=== PATIENT | male | born 1990 | race Caucasian/White ===

== ENCOUNTER 2020-05-30 16:11 | Outpatient (REF) | payer MEDICAID, SELFPAY ==
--- NOTE | 2020-05-30 16:19 | XR_ITS ---
EXAMINATION: XR MANDIBLE CLINICAL INFORMATION: Jaw pain. Right-sided injury. COMPARISON: None TECHNIQUE: 4 views of the mandible were obtained. FINDINGS: There is no fracture identified. No cortical disruption or discontinuity. Alignment of the temporomandibular joints appears grossly maintained. The visualized paranasal sinuses appear aerated. XR/XR mandible min 4V IMPRESSION: No evidence of fracture or malalignment.
== END 2020-05-30 16:12 | disposition home or self-care (01) ==
LOC: HO.HMGCX 16:11
PROVIDERS: Visit Provider Hospitalist
DX: R68.84 Jaw pain (principal)
CPT/HCPCS: 70110

== ENCOUNTER 2021-04-04 11:38 | Emergency (ER) | payer MEDICAID, SELFPAY ==
--- NOTE | ~2021-04-04 | XR_ITS ---
EXAMINATION: XR KNEE, RIGHT CLINICAL INFORMATION: Pain COMPARISON: 2 views right knee obtained earlier today TECHNIQUE: The other 2 views of the right knee. FINDINGS: There is no visible acute fracture, dislocation or subluxation seen. No bony erosive changes. No loose body seen. XR/XR knee RT 2V IMPRESSION: Unremarkable right knee exam.
--- NOTE | ~2021-04-04 | XR_ITS ---
EXAMINATION: XR KNEE, RIGHT CLINICAL INFORMATION: Right knee pain COMPARISON: None TECHNIQUE: 2 views of of the right knee. FINDINGS: Bone alignment is normal. No fracture or dislocation is seen. Joint spaces are normal. There is a cpken-[id number]-uvvbeosr joint effusion. XR/XR knee RT 2V IMPRESSION: Small to moderate effusion otherwise unremarkable exam.
[2021-04-04 11:45] VITALS: BP 124/62; PULSE 59; RESP 18; TEMP 36.9; O2SAT 99; BMI 27.6
--- NOTE | 2021-04-04 12:41 | ED_ITS ---
HPI - Extremity Injury (Lower) General Chief Complaint: Extremity Injury, Lower Stated Complaint: rt knee pain Time Seen by Provider: 04/04/21 12:41 Source: patient Mode of arrival: ambulatory Limitations: no limitations History of Present Illness HPI Narrative: This is a 30-year-old male that presents to the emergency department with right knee pain X 3 days and worse today. He states he is walking up the stairs 3 days ago when he felt like his right knee gave out on him, he felt a pop to his right knee and ever since then he has been having excruciating 10/10 right knee pain. He states he is unable to move that right knee, and he is having trouble bearing weight on that extremity. He denies any previous knee surgeries, and he denies previous trauma to the knee. He states he did not fall, denies chest pain, fevers, chills, parethesias, numbness, tinging, changes in bowel/bladder habits. He has tried, to decrease swelling but states it really has not helped. MD complaint: knee injury (right knee ) Onset (ago): day(s) (3) Type of Injury: other (walking up stairs) Place: home Severity: severe Severity scale (1-10): 10 Relieving factors: nothing Exacerbating factors: weight bearing, movement and palpation Associated symptoms: snap/pop sensation Other symptoms: none Treatments prior to arrival: cold therapy Related Data Previous Rx's Medication Instructions Recorded oxycodone-acetaminophen 10 mg-325 1 tab PO Q6H PRN #20 tab 05/30/20 mg tablet (Percocet) acetaminophen 500 mg tablet 1,000 mg PO QID PRN #14 tab 04/04/21 (Tylenol Extra Strength) ibuprofen 800 mg tablet 800 mg PO Q8H PRN #14 tab 04/04/21 oxycodone 5 mg tablet 5 mg PO Q6H PRN #14 tab 04/04/21 Allergies Allergy/AdvReac Type Severity Reaction Status Date / Time Sulfa (Sulfonamide Allergy Unknown ANAPHYLAXIS Unverified 05/30/20 16:02 Antibiotics) [SULFA (SULFONAMIDE ANTIBIOTICS)] Review of Systems Review of Systems: Constitutional : No changes in activity, No lethargy, No recent prior head injury, No agitation, No increased fussiness ENT/Mouth : No Ear Pain, No Nasal discharge/drainage Eyes: No Eye Pain, No Swelling, No Redness, No Foreign Body, No Vision Changes Cardiovascular : No Chest Pain, No SOB Respiratory : No Cough Gastrointestinal : No Nausea, No Vomiting, No abdominal Pain Genitourinary : No Dysuria, No Urinary Frequency, No Urinary Incontinence, No Urgency, No Flank Pain Musculoskeletal : + joint pain (right knee pain and swelling), No neck stiffness, No back pain/injury Skin : No lacerations Neuro : No unsteady gait, No Paresthesias, No Loss of Consciousness, No altered mental status, No Headache Yes all other systems are reviewed and are negative [facility] Past Medical History Attestation statement: The following information was validated with the patient. Source: old records reviewed Social History Social History Alcohol intake: current Alcohol intake frequency: a few times a month Patient Tobacco Use Status: Current everyday Tobacco user Use of substances other than those prescribed or required for medical reasons: No Advance Directives: No Advance Directives Information Provided: No Physical Exam Vital Signs: Vital Signs: Last Vital Signs Temp 98.9 F 04/04/21 14:12 Pulse 57 04/04/21 14:12 Resp 14 04/04/21 14:12 BP 118/62 04/04/21 14:12 Pulse Ox 98 04/04/21 14:12 Body Mass Index 27.6 Upon initial examination unable to assess properly due to pain. Patient is jumping out of bed with light palpation over the right knee. Will medicate this patient, and reassessed. Course Course Course Narrative: This is a 30-year-old male that presents with 10/10 right knee pain and swelling x3 days. He states he was walking up the stairs when his right knee gave out on him, he heard a pop. He did not fall but he started having severe 10/10 knee pain 3 days ago. He states he has been progressively worsening, and he has been having increased swelling. He denies any trauma to the area, and previous knee surgeries. He denies tingling, paresthesias, trauma, falls, fevers, chills. Upon initial examination patient is jumping out of bad with light palpation to the area. Unable to assess the patient due to pain. He will be medicated, will return to reassess. Reevaluation(s) Reevaluation #1: Right knee swelling pain was reviewed with patient age showed small to moderate effusion. This was a two view of the knee. Additional two views have been ordered, to ensure that all areas of the knees are seen.Plan is to discharge patient home if normal xrays are obtained, he will be discharged home with an Juan C wrap over right knee, and crutches. Reevaluation #2: - the 2 additional views have returned to the right knee and they are within normal limits. I re-evaluated the patient and he has increased range of motion although reports pain with range of motion. No obvious muscle/tendon/ligamentous injury/rupture/tear noted on my exam. Patient has a limping gait to the right leg due to pain. - therefore will place in a knee immobilizer provided crutches and treat symptomatically with instructions to follow up with Orthopedic in 1-2 weeks. Patient understands agrees with this plan. Time: 14:31 MDM - Extremity Injury (Lower) Imaging Data Right knee x-ray: Attestation: I personally reviewed and interpreted this imaging study as follows: Radiologist's impression: FINDINGS: Bone alignment is normal. No fracture or dislocation is seen. Joint spaces are normal. There is a [id number]-[id number] joint effusion.? XR/XR knee RT 2V IMPRESSION: Small to moderate effusion otherwise unremarkable exam. Procedures Orthopedic Splinting/Casting Injury #1: Side: right Lower Extremity Injury Location: knee Lower Extremity Immobilizer: knee immobilizer Other Orthopedic Equipment: crutches Discharge Plan Discharge Clinical Impression: Sprain of right knee, Effusion of knee joint right Patient Disposition: Home, Self-Care Instructions: Knee Sprain (ED), Crutch Instructions (ED), Swollen Knee Joint (ED), Knee Immobilizer (ED) Prescriptions: New ibuprofen 800 mg tablet 800 mg PO Q8H PRN (Reason: pain) Qty: 14 RF: 0 acetaminophen [Tylenol Extra Strength] 500 mg tablet 1,000 mg PO QID PRN (Reason: fever or pain) Qty: 14 RF: 0 oxycodone 5 mg tablet 5 mg PO Q6H PRN (Reason: pain) Qty: 14 RF: 0 No Action oxycodone-acetaminophen [Percocet] 10-325 mg tablet 1 tab PO Q6H PRN (Reason: pain) Qty: 20 RF: 0 Referrals: Danitza Cazares MD [Physician] - 1 week (Call tomorrow to make a follow-up appointment within next week or two) Stand Alone Forms: Work/School Release Print Language: Maltese
[2021-04-04] MEDS: Ondansetron ODT 4 MG TAB.RAPDIS TRANSLINGU (13:17)
[2021-04-04] MEDS: Ketorolac Tromethamine 15 MG/ML VIAL IM (13:18)
[2021-04-04 13:19] VITALS: RESP 16
[2021-04-04] MEDS: Morphine Sulfate 4 MG/ML CARTRIDGE IM (13:19)
[2021-04-04 14:12] VITALS: BP 118/62; PULSE 57; RESP 14; TEMP 37.2; O2SAT 98
== END 2021-04-04 15:06 | disposition home or self-care (01) ==
PROVIDERS: Emergency Provider Emergency Medicine
DX: S83.91XA Sprain of unspecified site of right knee, initial encounter (principal); M25.561 Pain in right knee; W10.9XXA Fall (on) (from) unspecified stairs and steps, initial encounter; Y93.9 Activity, unspecified; Y92.9 Unspecified place or not applicable; Y99.9 Unspecified external cause status; Z79.899 Other long term (current) drug therapy; F17.200 Nicotine dependence, unspecified, uncomplicated; Z71.6 Tobacco abuse counseling
CPT/HCPCS: 29505; 73560; 96372; 99284; J1885; J2270